=== PATIENT | male | born 1985 | race Hispanic/Latino ===

== ENCOUNTER 2021-11-19 03:12 | Emergency (ER) | payer BC, MEDICARE, OTHER ==
[~2021-11-19] VITALS: Ht 170.2 cm; Wt 81.6 kg
== END 2021-11-19 03:45 | disposition home or self-care (01) ==
LOC: FSED 03:21
DX: U07.1 COVID-19 (principal); J06.9 Acute upper respiratory infection, unspecified; R05.9 Cough, unspecified
CPT/HCPCS: 99282; U0002